=== PATIENT | male | born 1975 | race Caucasian/White ===

== ENCOUNTER 2020-01-27 00:57 | Emergency (ER) | payer OTHER ==
[~2020-01-27] VITALS: Ht 175.3 cm; Wt 68.0 kg
--- NOTE | 2020-01-27 01:00 | NUR ---
PT BIBSELF WITH BIZARRE BEHAVIOR. DOES NOT COOPERATE ANSWERING QUESTIONS, JUST STATES "I'M CRAZY". DENIES DRUG USE, SI/HI AT THIS TIME. PT APPEARS DISHEVELED. NOTED TACHYCARDIA, MD AWARE. RESPIRATIONS EVEN AND UNLABORED. NO ACUTE DISTRESS NOTED AT THIS TIME. WILL CONTINUE TO MONITOR
--- NOTE | 2020-01-27 01:08 | NUR ---
URINE COLLECTED AND SENT TO LAB
--- NOTE | 2020-01-27 01:23 | NUR ---
LOAN BROKER AT BEDSIDE FOR BLOOD DRAW
[2020-01-27 01:28] LABS: BASOPHILS % (AUTO) 0.3 % (0.0-2.0); EOSINOPHILS % (AUTO) 0.2 % (0.0-6.0); HEMATOCRIT 44 % (39-51); HEMOGLOBIN 14.8 g/dL (13.5-17.5); LYMPHOCYTES # (AUTO) 1.4 /CMM (0.8-4.8); LYMPHOCYTES % (AUTO) 15.3 % (20.0-44.0); MEAN CORPUSCULAR HGB CONC 34 g/dl (31.0-36.0); MEAN CORPUSCULAR VOLUME 95 fL (80-96); MONOCYTES # (AUTO) 1.2 /CMM (0.1-1.30); MONOCYTES % (AUTO) 12.8 % (2.0-12.0); NEUTROPHILS # (AUTO) 6.4 /CMM (1.8-8.9); NEUTROPHILS % (AUTO) 71.4 % (43.0-81.0); PLATELET COUNT (AUTO) 188 /CMM (150-450); RED BLOOD CELL COUNT(AUTO) 4.61 MIL/uL (4.5-6.0)
[2020-01-27 01:42] LABS: CALCIUM, SERUM 9.6 mg/dL (8.5-10.1); CARBON DIOXIDE 26 mmol/L (21-32); CHLORIDE 104 mmol/L (98-107); GLUCOSE 126 mg/dL (74-106); POTASSIUM 3.2 mmol/L (3.5-5.1); SODIUM SERUM 141 mmol/L (136-145); UREA NITROGEN, BLOOD 32 mg/dL (7-18)
[2020-01-27 01:48] LABS: ALANINE AMINOTRANSFERASE 45 U/L (12-78); ALBUMIN 4.4 g/dL (3.4-5.0); ALCOHOL, BLOOD < 3 mg/dL (0-0); ALKALINE PHOSPHATASE 93 U/L (46-116); ASPARTATE AMINOTRANSFERASE 81 U/L (15-37); BILIRUBIN,DIRECT 0.3 mg/dL (0.0-0.2); BILIRUBIN,TOTAL 1.4 mg/dL (0.2-1.0); TOTAL PROTEIN, SERUM 7.7 g/dL (6.4-8.2)
[2020-01-27] MEDS ORDERED: POTASSIUM CHLORIDE 20 MEQ TAB.PRT.SR PO ONE ×2 (02:00→02:03)
[2020-01-27 02:03] LABS: ACETAMINOPHEN 0 ug/ml (10-30); SALICYLATE 0.3 mg/dL (2.8-20.0)
[2020-01-27 02:05] LABS: APPEARANCE,URINE CLEAR (CLEAR); BILIRUBIN,URINE SMALL (NEGATIVE); BLOOD, URINE SMALL Ery/uL (NEGATIVE); COLOR,URINE DARK YELLO (YELLOW); KETONES,URINE 15 (NEGATIVE); LEUKOCYTE ESTERASE ,URINE NEGATIVE (NEGATIVE); NITRITE, URINE NEGATIVE (NEGATIVE); PH,URINE 5.5 (5.0-8.0); PROTEIN,URINE 30 mg/dl (NEGATIVE); UGLUCOSE NEGATIVE (NEGATIVE); UROBILINOGEN,URINE 0.2 EU/dL (0.2)
[2020-01-27 02:26] LABS: BACTERIA,URINE None seen /HPF (None Seen); RBC,URINE 0-2 /HPF (0-2); SQUAMOUS EPITHELIAL CELL,UR Few /HPF (None Seen); WBC,URINE 0-2 /HPF (0-3)
[2020-01-27] MEDS ORDERED: QUETIAPINE FUMARATE 25 MG TABLET PO SCH (02:30)
[2020-01-27] MEDS ORDERED: QUETIAPINE FUMARATE 25 MG TABLET ONE (02:35)
--- NOTE | 2020-01-27 07:16 | NUR ---
PATIENT AMBULATED WITH A STEADY GAIT.
[2020-01-27 07:17] VITALS: BP 127/88
--- NOTE | 2020-01-27 07:17 | NUR ---
Patient discharged to home in stable condition. Written and verbal after care instructions given. Patient verbalizes understanding of instruction.
== END 2020-01-27 07:19 | disposition home or self-care (01) ==
LOC: ER 00:59
DX: F15.10 Other stimulant abuse, uncomplicated (principal)
CPT/HCPCS: 36415; 80048; 80076; 80305; 80307; 80329; 81001; 85025; 99283; G0480; 81000-TC

== ENCOUNTER 2020-01-27 09:13 | Emergency (ER) | payer OTHER ==
[~2020-01-27] VITALS: Ht 175.3 cm; Wt 68.0 kg
--- NOTE | 2020-01-27 09:14 | NUR ---
[address], BIZARRE BEHAVIOR "I FEEL UNSAFE OUTSIDE". TO ER BED 15, HOOKED TO MONITOR, CHANGED TO HOSP GOWN, WARM BLANKET PROVIDED, PATIENT DOES NOT ANSWER QUESTIONS. DR SHEEHAN AT BEDSIDE
[2020-01-27] MEDS ORDERED: OLANZAPINE 10 MG VIAL IM ONE ×2 (09:16→09:30)
--- NOTE | 2020-01-27 09:40 | NUR ---
PT. VERBALIZED UNDERSTANDING OF AFTERCARE INSTRUCTIONS.Patient discharged to home in stable condition. Written and verbal after care instructions given. Patient verbalizes understanding of instruction.
--- NOTE | 2020-01-27 09:40 | NUR ---
Patient given written and verbal discharge instructions. Patient verbalizes understanding of instructions. Patient is ambulatory with steady gait. Refuses offer of [facility] placement. Patient given list of available shelters in surrounding area. Name band removed. In proper clothing upon discharge. All belongings with patient.
[2020-01-27 09:42] VITALS: BP 112/92
== END 2020-01-27 09:43 | disposition home or self-care (01) ==
LOC: ER 09:14
DX: F15.90 Other stimulant use, unspecified, uncomplicated (principal); F31.9 Bipolar disorder, unspecified; F20.9 Schizophrenia, unspecified
CPT/HCPCS: 96372; 99283; J3490